=== PATIENT | female | born 1975 | race Caucasian/White ===

== ENCOUNTER 2017-10-24 11:21 | Emergency (ER) | payer OTHER ==
[2017-10-24 11:48] VITALS: BP 147/68; PULSE 76; TEMP 98; BMI 27.4
[2017-10-24] MEDS ORDERED: IBUPROFEN 400 MG TABLET (FP) PO ONE ×2 (12:29)
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
== END 2017-10-24 12:36 | disposition home or self-care (01) ==
LOC: JERFT 11:21
DX: S29.012A Strain of muscle and tendon of back wall of thorax, initial encounter (principal); V43.62XA Car passenger injured in collision with other type car in traffic accident, initial encounter; Y93.89 Activity, other specified; Y92.410 Unspecified street and highway as the place of occurrence of the external cause
CPT/HCPCS: 99281-25